=== PATIENT | female | born 1950 | race Caucasian/White ===

== ENCOUNTER 2019-01-11 14:56 | Inpatient (IN) | payer MEDICARE, OTHER ==
[~2019-01-11] VITALS: Ht 162.6 cm; Wt 77.6 kg
--- NOTE | 2019-01-11 15:10 | NUR ---
PT EASILY AGITATED INSPITE OF COMFORT MEASURES PROVIDED. NOTIFIED.
[2019-01-11] MEDS ORDERED: MAGN400O6 PO (15:27)
[2019-01-11] MEDS ORDERED: VENL37.581 PO (15:27)
[2019-01-11] MEDS ORDERED: CLON0.5T4 PO (15:27)
[2019-01-11] MEDS ORDERED: DIVA500T54 PO (15:27)
[2019-01-11] MEDS ORDERED: SIMV-49 PO (15:27)
[2019-01-11] MEDS ORDERED: ASPI-605 PO (15:27)
[2019-01-11] MEDS ORDERED: LEVO100T10 PO (15:27)
[2019-01-11] MEDS ORDERED: DOCU100C36 PO (15:27)
[2019-01-11] MEDS ORDERED: QUET100T PO (15:27)
[2019-01-11] MEDS ORDERED: OLANZAPINE 10 MG VIAL IM ONE ×2 (15:52→16:00)
--- NOTE | 2019-01-11 16:27 | NUR ---
TRANSFERED PT TO MHU IN STABLE CONDITION.
[2019-01-11] MEDS ORDERED: MAG HYDROX/AL HYDROX/SIMETH 30 ML LIQUID UDC PO PRN (16:45)
[2019-01-11] MEDS ORDERED: BLOOD SUGAR DIAGNOSTIC 1 EACH STRIP VI ONE (16:45)
[2019-01-11] MEDS ORDERED: ZOLPIDEM 5 MG TABLET PO PRN (16:45)
[2019-01-11] MEDS ORDERED: LORAZEPAM 0.5 MG TABLET PO PRN (16:45)
[2019-01-11] MEDS ORDERED: ACETAMINOPHEN 325 MG TABLET PO PRN (16:45)
[2019-01-11] MEDS ORDERED: MAGNESIUM HYDROXIDE 30 ML LIQUID UDC PO PRN (16:45)
--- NOTE | 2019-01-11 17:07 | NUR ---
Gps/Help Desk Coordinator- Admitted from ER via [facility]. Awake, anxious, restless. Wiliam mind is sof oggy r/t to mediciations they administered in the ER. Denies S.I./H.I. Claimed she came becaused she wants to have her abdominal tumor check, " i need surgery but nobody is listening to me". Informed patient she is at the [facility] , unable to provide care for herself. . Claimed that is not chantel, she wants to have OB Gyne to see her and do surgery per pt.Irritable and extremely anxious during admission , unable to provide answer to questions asked. Claimed staff bothers her too much, needed to get all belongings back , jumping from one topic to another.Unable to provide tel.# of her niece who will be the screed person. . Routine admission care done.
[2019-01-12] MEDS: LEVOTHYROXINE SODIUM 100 MCG TABLET PO SCH (06:06)
--- NOTE | 2019-01-12 06:44 | NUR ---
Patient slept 7.45 hours. Up early this am with multiple complaints. Everything from they way the toilet flushes too the way the bottle water tastes. Patient did take medications with much reluctancy. Back in bed mumbling to self about what a 'Horrible place [place] is ". Patient refused shower this am. No acute distress noted.
[2019-01-12 07:30] VITALS: BP 120/48
--- NOTE | 2019-01-12 07:54 | NUR ---
PT IS QUITE NEEDY, INTRUSIVE, REPETITIVE, AND ANXIOUS. FREQUENTLY REQUESTING MULTIPLE THINGS FROM DIFFERENT STAFF MEMBERS. NOTHING STAFF DOES FOR PT SEEMS TO ADEQUATELY SATISFY HER. REQUIRES FREQUENT REDIRECTION. NO COMBATIVE BEHAVIOR NOTED AT THIS TIME.
[2019-01-12] MEDS ORDERED: QUETIAPINE FUMARATE 100 MG TABLET PO SCH (09:00)
[2019-01-12] MEDS: DOCUSATE SODIUM 100 MG CAPSULE PO SCH ×2 (09:11→16:35)
[2019-01-12] MEDS: ASPIRIN EC 81 MG TABLET.DR PO SCH (09:11)
--- NOTE | 2019-01-12 09:28 | NUR ---
Gps/Piano Tuner- Able to verbalized feelings, patient was reassured . Patient claimed she is scared of ending up being homeless. Informed Social Workers will be in monday , and they will assist her with her issues.
--- NOTE | 2019-01-12 09:51 | NUR ---
Gps/Plan Rep- Patient kept coming to Nurses station , kept asking for the same thing , needy, argumentative behavior . Noted increased anxiety , claimed she does not know why she ends up here at [facility]. nobody to help her. Kept reassuring patient , but not listening to staff.
[2019-01-12] MEDS ORDERED: LORAZEPAM 0.5 MG TABLET PO PRN (10:15)
[2019-01-12] MEDS: OLANZAPINE ZYDIS 5 MG TAB.RAPDIS PO SCH ×2 (10:47→16:35)
[2019-01-12] MEDS: OXCARBAZEPINE 300 MG TABLET PO SCH ×2 (10:47→20:37)
--- NOTE | 2019-01-12 11:57 | NUR ---
2ND PHONE CALL TO DR. GONSALEZ PLACED AT THIS TIME. LEFT MESSAGE TO CALL UNIT BACK TO NOTIFY OF CONSULT PLACED BY DR. PARK FOR PT.
--- NOTE | 2019-01-12 12:14 | NUR ---
DR. MATUTE CALLED BACK AND NOTIFIED.
--- NOTE | 2019-01-12 14:42 | NUR ---
PT REMAINS EXCESSIVELY INTRUSIVE, ARGUMENTATIVE, AND NEEDY WITH CHILD-LIKE PERSONALITY. FREQUENTLY AT THE NURSES STATION WITH MULTIPLE ARBITRARY DEMANDS AND COMPLAINTS. PT COMPLAINING ABOUT CHEMICAL OPERATOR NOT GIVING HER PRAISE WHEN OTHER PT'S GET PRAISE. FREQUENTLY TALKING TO SELF. PT COMPLAINING THAT THE DOCTOR IS NOT GIVING HER APPROPRIATE MEDICATIONS AND NOBODY CARES ABOUT HER. ETC. OFTEN REFUSES TO LEAVE NURSES STATION. REQUIRES FREQUENT AND EXTENSIVE REDIRECTION. CONTINUES TO BE QUITE QUITE RUDE AND DEMANDING.
[2019-01-12] MEDS: CLONAZEPAM 0.5 MG TABLET PO PRN (15:02)
--- NOTE | 2019-01-12 15:05 | NUR ---
Gps/Oxidation Operator- Patient requesting snacks , offered pudding, claimed it does not make sense that patients had to ask for snacks , anxious, clonopin 0.25 mg po given. encouraged to stay in her group therapy.
--- NOTE | 2019-01-12 15:53 | NUR ---
Gps/Oracle Erp Architect- Patient's niece Valdez called ([phone]) wants to check how Olamide is doing. Adequate information provided. Claimed she will be checking back in few days. she knows Olamide well, claimed patient , wants staff to call her anytime if needed more information. She also stated" she'd been at [facility] in for almost 2 months from Oct. patient had been difficult , not compliance with her medications.
[2019-01-12 16:00] VITALS: BP 107/50
--- NOTE | 2019-01-12 17:45 | NUR ---
Gps/Spine Specialist- Hesitancy taking her routine pm meds. claimed it does do me any good per pt. Informed to give it a try, be compliant with her tx regimen as ordered by her Psychiatrist . Noted patient quiet down, less anxious after her dose of clonopin 0.25 mg. (asleep for 1 hour).Stayed in the dinning during dinner.
[2019-01-12] MEDS: SIMVASTATIN 40 MG TABLET PO SCH (20:37)
[2019-01-12] MEDS: MIRTAZAPINE 15 MG TABLET PO SCH (20:37)
[2019-01-12 20:57] VITALS: BP 121/65
--- NOTE | 2019-01-13 06:17 | NUR ---
Patient slept a total of 6.15 hours after taking sleeping medicine. Noted patient very needy and kept complaining that the medications we give her are making her more sick but she has been compliant with medications. Attended all needs. Ensured safety and comfort. Will endorse accordingly.
[2019-01-13] MEDS: LEVOTHYROXINE SODIUM 100 MCG TABLET PO SCH (06:52)
[2019-01-13 07:30] VITALS: BP 132/45
[2019-01-13] MEDS: ASPIRIN EC 81 MG TABLET.DR PO SCH (08:57)
[2019-01-13] MEDS: OLANZAPINE ZYDIS 5 MG TAB.RAPDIS PO SCH ×2 (08:57→16:49)
[2019-01-13] MEDS: DOCUSATE SODIUM 100 MG CAPSULE PO SCH ×2 (08:57→16:49)
[2019-01-13] MEDS: OXCARBAZEPINE 300 MG TABLET PO SCH ×2 (09:18→21:00)
--- NOTE | 2019-01-13 09:30 | NUR ---
Gps/Relationship Associate- Noted extremely anxious, claimed medications are making her behave that way , she does not want to take them, vey argumentative. Also verbalized she does not want her Psychiatrist claimed he is abandoning her. Informed patient and reminded pt. she is the one who verbalized she does not want to see assigned Psychiatrist anymore. Difficulty trying to reason out with the patient gets loud ,making all patient gets irritable. Extremely anxious . Hesitancy to take routine meds. given choices, agreed to chaim after explaining and encouragement.
[2019-01-13] MEDS: CLONAZEPAM 0.5 MG TABLET PO PRN (10:23)
--- NOTE | 2019-01-13 15:35 | NUR ---
Gps/Escalator Attendant-Irritable demanding snacks right away , claimed she did not eat well at lunch. Sarcasms noted as she was complaining she was being ignored here, she needed medical attention . Informed patient why she's here trying to read her advisement if she remembers, talks down at the staff, critisized their accent , wants to speak to someone with blue eyes for a change.Patient constantly complaining about something , needy and demanding behavior.
[2019-01-13 16:04] VITALS: BP 110/47
--- NOTE | 2019-01-13 16:56 | NUR ---
Gps/Pulverizer Operator- Refusing to take pm meds. claimed it makes her crazy amd making her angry, came out chasing the Nurse to give her medication, because she does not want to end up in the street. Continue to get argumentative, irritable , calling staff names, informed inappropriate behavior name callng not allowed.
[2019-01-13] MEDS: MIRTAZAPINE 15 MG TABLET PO SCH (21:00)
[2019-01-13] MEDS: SIMVASTATIN 40 MG TABLET PO SCH (21:00)
--- NOTE | 2019-01-13 22:00 | NUR ---
PT REFUSING TO TAKE HER MEDICATIONS. TELLING ME IT MAKES HER SICK. PT NONCOMPLIANT WITH CARE. SAFETY PROVIDED. WILL CONTINUE TO MONITOR.
[2019-01-14] MEDS: LEVOTHYROXINE SODIUM 100 MCG TABLET PO SCH (06:08)
--- NOTE | 2019-01-14 06:16 | NUR ---
PT SLEPT 1.15 HOURS. PT IN NO ACUTE DISTRESS. PT HAS MANIC EPISODES. TALKING TO HERSELF. PT ARGUMENTATIVE. PT NEEDS REDIRECTION AND LIMITATION. PT VERBALLY ABUSIVE. PT HAVE A CONCERN REGARDING HER EYES AND OVARIAN CANCER.SAFETY AND COMFORT PROVIDED. WILL ENDORSE TO INCOMING NURSE FOR CONTINUITY OF CARE.
[2019-01-14 07:30] VITALS: BP 116/50
[2019-01-14] MEDS: ASPIRIN EC 81 MG TABLET.DR PO SCH (09:56)
[2019-01-14] MEDS: DOCUSATE SODIUM 100 MG CAPSULE PO SCH ×2 (09:56→17:04)
[2019-01-14] MEDS: CLONAZEPAM 0.5 MG TABLET PO PRN ×2 (09:57→17:04)
[2019-01-14] MEDS: MIRALAX 17 GM POWD.PACK PO SCH (14:46)
[2019-01-14 15:44] VITALS: BP 127/64
--- NOTE | 2019-01-14 16:10 | NUR ---
Social Work Note/Discharge Planning: early childhood worker contacted patients [facility] at the [facility] ([phone]) and spoke to admin coordinator Radha is welcomed back.
[2019-01-14 20:00] VITALS: BP 132/72
[2019-01-14] MEDS: SIMVASTATIN 40 MG TABLET PO SCH (20:13)
[2019-01-14] MEDS ORDERED: QUETIAPINE FUMARATE 100 MG TABLET PO SCH (21:00)
--- NOTE | 2019-01-14 23:52 | NUR ---
GPS: Pt.is awake at this time. Angry,irritable and argumentative. Constantly finding something to complain about her roommate. Easily irritable when being re-directed. Poor impulse control,manipulative. Will continue to monitor behavior for further escalation.
[2019-01-15] MEDS: LEVOTHYROXINE SODIUM 100 MCG TABLET PO SCH (06:42)
[2019-01-15 07:30] VITALS: BP 100/67
[2019-01-15] MEDS: CLONAZEPAM 0.5 MG TABLET PO PRN ×2 (07:55→15:58)
--- NOTE | 2019-01-15 07:59 | NUR ---
GPS:receieved patient ao2 pacing in her room, looks anxious, verbalizing her complin about the room is so cold, the bed is not comfortable, roommates snoring, dont like a male nurse, patient would complin every 5mins about everything in room, and saying that everything just went wrong in one night, patient compliant with her prn medication, will keep monitoring
[2019-01-15] MEDS: DOCUSATE SODIUM 100 MG CAPSULE PO SCH ×2 (08:02→16:00)
[2019-01-15] MEDS: ASPIRIN EC 81 MG TABLET.DR PO SCH (08:02)
[2019-01-15] MEDS: MIRALAX 17 GM POWD.PACK PO SCH (08:02)
[2019-01-15] MEDS: DIVALPROEX 250 MG TABLET.DR PO SCH ×2 (09:33→20:11)
--- NOTE | 2019-01-15 14:21 | NUR ---
gps: patient approach the nursing station asking for her PRN medication to attend the group therapy ,ask if what is the reason why she wants to have PRN, patient starts to become argumentative and irritated, start insulting nurses and other staff, unable to be redirected, patient threats to file a grievance form just to give in and have what she wants, patient was on Voluntary
--- NOTE | 2019-01-15 14:26 | NUR ---
Social Work Note: Patient is constantly bothering the nursing staff and the social workers. Patient is being intrusive and constantly complaining. Patient is being verbally abusive towards the nursing staff and stating inappropriate words towards the staff.
[2019-01-15 15:17] VITALS: BP 95/48
--- NOTE | 2019-01-15 17:05 | NUR ---
gps: remain calm after giving snacks , patient still has tendency to argue with staff, will continue monitor
[2019-01-15 20:00] VITALS: BP 108/59
[2019-01-15] MEDS: QUETIAPINE FUMARATE 100 MG TABLET PO SCH (20:11)
[2019-01-15] MEDS: SIMVASTATIN 40 MG TABLET PO SCH (20:18)
--- NOTE | 2019-01-15 20:53 | NUR ---
Patient was transferred to M/S floor. Patient was assisted with security via wheelchair as she became very upset that she was being transferred. Charge nurse with patient and belongings brought with patient. Scheduled medications given, patient refused simvastatin, explained risk and benefits, but she still refused. Report given to DENNYS Perla.
--- NOTE | 2019-01-15 21:15 | NUR ---
DR. PARK contacted regarding patient behavior. throwing blankets and clothes on the floor, cussing and complaining of transferring floors and the room that she is in, walking in and out of her room threatening to leave the hospital. orders received to administer 2mg ativan IM once. will administer and f/u. .
[2019-01-15] MEDS: LORAZEPAM 2 MG/1 ML VIAL IM ONE ×2 (21:29→21:30)
--- NOTE | 2019-01-15 22:45 | NUR ---
attempted to administer Ativan, but patient reported to me that she did not want the Ativan. patient was hostile continuously yelling and screaming for a little over an hr. she was complaining of coming up to the med/surg floor, the bed being uncomfortable, throwing all the blankets and belongings on the floor, cursing at staff, swinging her arms and legs. unable to give Ativan at the time. observed for patient to calm down a little bit to administer ativan, however patient showed s/s of gradually quieting down. wasted in Pyxis after assessment that patient no longer required ativan administration. patient currently asleep and quiet.
[2019-01-16] MEDS: LEVOTHYROXINE SODIUM 100 MCG TABLET PO SCH (06:04)
--- NOTE | 2019-01-16 07:30 | NUR ---
Patient mildly agitated upon initial assessment; patient will continue to be monitored.
[2019-01-16] MEDS: ASPIRIN EC 81 MG TABLET.DR PO SCH (07:53)
[2019-01-16] MEDS: DIVALPROEX 250 MG TABLET.DR PO SCH ×2 (07:53→20:21)
[2019-01-16] MEDS: DOCUSATE SODIUM 100 MG CAPSULE PO SCH ×2 (07:54→16:32)
[2019-01-16] MEDS: CLONAZEPAM 0.5 MG TABLET PO PRN ×2 (07:54→16:32)
[2019-01-16] MEDS: MIRALAX 17 GM POWD.PACK PO SCH (07:54)
--- NOTE | 2019-01-16 08:32 | NUR ---
Social Work Note/Family Contact: paste worker contacted patients sister Juli ([phone]) and she mentioned that she does not want to be part of patients care. Juli stated that she lives in [place] and has a sick who she cares for. Juli stated that patients behavior is aggressive and she is unable to handle her behavior. Juli shared that her daughter Gia ([phone]) wants to be involved in patients care but patient refuses to see Gia. paste worker will follow-up.
--- NOTE | 2019-01-16 08:40 | NUR ---
Social Work Note/Family Contact: industrial relations worker contacted patients family member Gia ([phone]) and left a voicemail in regard to patients treatment and discharge plan.
--- NOTE | 2019-01-16 11:06 | NUR ---
Social Work Note/Individual Therapy: log chain worker shared Assisted Living quotes of [facility], [facility], and [facility]. She expressed that these were expensive and expressed to social worker aide to not tell Yamilet at [facility] that she is looking for another Assisted Living because she is able to afford it there. Patient expressed that she will return to [facility].
[2019-01-16 11:39] VITALS: BP 102/49
[2019-01-16 16:19] VITALS: BP 105/47
--- NOTE | 2019-01-16 18:53 | NUR ---
Patient with multiple episodes of agitation throughout shift ; Psychiatrist visited patient and educated patient on medication compliance and behavior modalities; Patient mostly medication compliant; patient redirected multiple times through out shift; patient with stable vital signs; Report given to oncoming nurse.
[2019-01-16] MEDS: QUETIAPINE FUMARATE 100 MG TABLET PO SCH (20:21)
[2019-01-16] MEDS: SIMVASTATIN 40 MG TABLET PO SCH (20:21)
--- NOTE | 2019-01-16 22:49 | NUR ---
report given to trinidad at [facility]
--- NOTE | 2019-01-16 23:00 | NUR ---
received to care, lying in bed, pleasant and calm upon approach. compliant with medications given by previous nurse. no distress noted. will continue to monitor closely.
--- NOTE | 2019-01-16 23:30 | NUR ---
appears to be asleep. no distress noted.
[2019-01-17 05:28] VITALS: BP 127/70
--- NOTE | 2019-01-17 06:00 | NUR ---
slept well. no distress noted.
[2019-01-17] MEDS: LEVOTHYROXINE SODIUM 100 MCG TABLET PO SCH (06:38)
--- NOTE | 2019-01-17 08:00 | NUR ---
Received patient standing at doorway appearing anxious. Redirected and reoriented. No s/s of acute distress. Denies SI/HI. Will continue to monitor.
[2019-01-17] MEDS: DOCUSATE SODIUM 100 MG CAPSULE PO SCH (08:33)
[2019-01-17] MEDS: MIRALAX 17 GM POWD.PACK PO SCH (08:33)
[2019-01-17] MEDS: ASPIRIN EC 81 MG TABLET.DR PO SCH (08:33)
[2019-01-17] MEDS: CLONAZEPAM 0.5 MG TABLET PO PRN ×2 (08:43→14:45)
[2019-01-17] MEDS: DIVALPROEX 250 MG TABLET.DR PO SCH ×2 (08:44→09:11)
--- NOTE | 2019-01-17 11:14 | NUR ---
Brick Machine Operator Note/Family Contact: disposal worker contacted patients family member Gia ([phone]) is aware and agreeable with discharge plans.
--- NOTE | 2019-01-17 11:19 | NUR ---
Social Work Note/Firearm Report: Command And Control Systems Integrator completed and submitted a [employer] firearms report for 5[address] grave disability certification. A copy of report has been placed in patient chart.
--- NOTE | 2019-01-17 11:26 | NUR ---
Social Work Note/Discharge: Patient will be discharged back to [facility] [address] [place] [address]; via taxi. Please arrange taxi for patient to be picked up at 1:00pm. Sandblaster Stone spoke with Radha contacted from [facility] ([phone]) at the facility who states they are ready to accept the patient back today. Patient is aware and agreeable with discharge plans. Patients family member Gia ([phone]), is aware and agreeable with discharge plans. Patient is aware and agreeable with discharge plans. Patient is alert and oriented x3, is not able to plan for self-care, and denies any suicidal or homicidal ideations. Patient will follow-up with primary doctor at [id number] [place] [address]; ([phone]) with Dr. Simone wilburn (Primary Care Physician) on January 23, 2019 at 11:00AM. Patient will follow up at [facility] on January 22 at 9:30AM at [address] [place] [address]; ([phone]) and will be assigned with a psychiatrist upon arrival. Patient was given outpatient mental health referrals to [facility] [[address] [place] [address]; [phone]]; [facility] Crisis Line ([phone]); National Suicide Prevention Lifeline ( ). Patient presents with euthymic mood and congruent affect.
[2019-01-17 11:30] VITALS: BP 101/60
--- NOTE | 2019-01-17 12:01 | NUR ---
Social Work Note/Coordination of Care: tank worker faxed patients progress notes and H & P and medication to primary doctor office to [facility] ([phone]). tank worker also faxed patients psychiatrist office to [facility] ([phone]) and sent patients progress notes and H & P and medication at [facility].
--- NOTE | 2019-01-17 14:00 | NUR ---
Receiving facility expecting patient at 1330. Patient frequently refusing to leave. Patient is paranoid and anxious at this time. Redirected and reoriented frequently and reduced stimuli. Effective momentarily but continues to become anxious and walk out room and hover over staff.
[2019-01-17 15:40] VITALS: BP 133/81
--- NOTE | 2019-01-17 16:25 | NUR ---
Social Work Note: Patient was refusing to leave the hospital. Security was called to escort patient to taxi.
--- NOTE | 2019-01-17 16:30 | NUR ---
After frequent redirection, orientation and education regarding discharge. Patient discharged back to facility. Patient is anxious but was able to calm patient down with redirection of focus and reduction of stimuli. No s/s of acute distress. No SOB noted. Denies SI/HI. Report given to receiving facility staff.
== END 2019-01-17 16:20 | DRG 885 ==
LOC: ER 15:02 → GPS 16:11 → GPSOV3 01-15 21:23
PROVIDERS: ADMIT Psychiatry & Neurology Psychiatry; ATTEND Nurse Practitioner Acute Care
DX: F31.64 Bipolar disorder, current episode mixed, severe, with psychotic features (principal); F17.200 Nicotine dependence, unspecified, uncomplicated; E03.9 Hypothyroidism, unspecified; E78.5 Hyperlipidemia, unspecified; Z79.890 Hormone replacement therapy; F60.3 Borderline personality disorder; F60.7 Dependent personality disorder; Z90.710 Acquired absence of both cervix and uterus; K59.00 Constipation, unspecified; K57.30 Diverticulosis of large intestine without perforation or abscess without bleeding; N83.201 Unspecified ovarian cyst, right side; Z79.899 Other long term (current) drug therapy; M85.89 Other specified disorders of bone density and structure, multiple sites
CPT/HCPCS: 36415; 71250; A4663; J2060; J2358; J3490